=== PATIENT | female | born 1985 | race Caucasian/White ===

== ENCOUNTER → 2024-08-04 | Outpatient (CLI) | payer BC, SELFPAY | END | disposition home or self-care (01) | PROVIDERS: Referring Provider Nurse Practitioner Family; Visit Provider Nurse Practitioner Family | DX: N39.0 Urinary tract infection, site not specified (principal) | CPT/HCPCS: 87086 ==

== ENCOUNTER → 2024-08-08 | Outpatient (CLI) | payer BC, MEDICAID, SELFPAY ==
--- NOTE | 2024-08-08 16:00 | XR_ITS ---
Examination: Retroperitoneal ultrasound, complete Technique: Multiple high resolution grayscale images of the retroperitoneum obtained, including kidneys and bladder. Exam date and time:August 08, 2024 1647 hours INDICATIONS: Bilateral flank pain beginning 3 months ago with burning urination 3 weeks FINDINGS: Right kidney by 5.0 x 5.0 cm in the cortex 3.3 cm Left kidney 10.5 x 5.2 x 5.1 cm renal cortex 2.1 cm Mild renal parenchymal scar formation, no hydronephrosis or renal calculi No bladder mass or bladder calculi Bladder prevoid volume 460 cc postvoid volume 0 cc, bladder wall does not appear thickened IMPRESSION: Mild bilateral renal parenchymal scar formation
[2024-08-08 17:55] LABS: Basophils # (Auto) 0.1 Thou/mm3 (0.0-0.2); Basophils % (Auto) 1 % (0-2.5); Eosinophils # (Auto) 0.1 Thou/mm3 (0.0-0.5); Eosinophils % (Auto) 2 % (0-10); Hematocrit 40.3 % (36.0-46.0); Immature Granulocytes % (Auto) 0 % (0-0); Immature Granulocytes Auto 0.02 Thou/mm3 (0.00-0.00); Lymphocytes % (Auto) 41 % (10-50); Mean Corpuscular HGB Conc 34.7 g/dl (31.0-37.0); Mean Corpuscular Hemoglobin 31.5 pg (25.0-35.0); Mean Corpuscular Volume 91 fL (80-100); Monocytes # (Auto) 0.7 Thou/mm3 (0.0-0.8); Monocytes % (Auto) 9 % (0-12); Neutrophils # (Auto) 3.4 Thou/mm3 (1.8-7.7); Neutrophils % (Auto) 46 % (37-80); Nucleated Red Blood Cell % 0 /100 WBC (0); Platelet Count 219 Thou/mm3 (140-440); RDW Standard Deviation 39.9 fL (36.4-46.3); Red Blood Count 4.45 Miln/mm3 (4.00-5.20); White Blood Count 7.3 Thou/mm3 (3.6-11.0)
[2024-08-08 18:26] LABS: Alanine Aminotransferase 19 U/L (10-49); Albumin, Serum 4.5 gm/dL (3.5-5.0); Albumin/Globulin Ratio 2.3 (1.2-2.2); Alkaline Phosphatase 64 U/L (46-116); Anion Gap 4 (7-16); Aspartate Amino Transferase 18 U/L (0-34); BUN/Creatinine Ratio 12 Ratio (12-20); Bilirubin,Total 0.6 mg/dL (0.3-1.2); Blood Urea Nitrogen 11 mg/dL (9-23); Calcium 9.5 mg/dL (8.3-10.6); Calcium (Corrected) 9.5 mg/dL (8.5-10.1); Carbon Dioxide 28.3 mMol/L (20.0-31.0); Chloride 106 mMol/L (98-107); Creatinine (Component) 0.9 mg/dL (0.6-1.3); Glucose 83 mg/dL (74-106); Osmolality,Calculated 274 (275-295); Potassium 4.2 mMol/L (3.4-5.1); Sodium 138 mMol/L (136-145); Total Protein 6.5 gm/dL (5.7-8.2); eGFR > 60 See Note
== END | disposition home or self-care (01) ==
LOC: CDIM 16:58 → COPL 17:05
PROVIDERS: PCP Nurse Practitioner Family; Referring Provider Nurse Practitioner Family; Visit Provider Radiology Diagnostic Radiology
DX: N28.89 Other specified disorders of kidney and ureter (principal); N10 Acute pyelonephritis
CPT/HCPCS: 36415; 76770; 80053; 85025

== ENCOUNTER → 2024-09-15 | Outpatient (CLI) | payer BC, MEDICAID, SELFPAY ==
--- NOTE | 2024-09-15 14:30 | XR_ITS ---
Examination: CT abdomen and pelvis without contrast. Coronal 3-D reconstructions. Sagittal 2-D reconstructions. Date and time of exam:September 15, 2024 1448 hours COMPARISON: July 30, 2015 INDICATIONS: Hematuria several weeks, diagnosis interstitial cystitis CTDI: vol (mGy): 7.04 DLP: (mGycm): 376 Technique: Axial images of the abdomen have been obtained, 3 mm slice thickness Intravenous contrast material has not been administered. Low dose protocols were performed. One or more of the following dose reduction techniques were used; automated exposure control, adjustment of the mA and/or KV according to patient size, use of iterative reconstruction technique. Findings: No focal liver or splenic lesions Absent gallbladder No pancreatic or adrenal mass No renal or ureteral calculi, no hydronephrosis Aorta normal size No pericecal inflammatory change Moderate stool in the rectosigmoid region No cystitis pattern Appearing uterine remnant IMPRESSION: No renal or ureteral calculi, no hydronephrosis Apparent uterine remnant but clinical correlation advised, recommend pelvic sonography follow-up
== END | disposition home or self-care (01) ==
PROVIDERS: PCP Registered Nurse; Referring Provider Nurse Practitioner Family; Visit Provider Nurse Practitioner Family
DX: N30.11 Interstitial cystitis (chronic) with hematuria (principal)
CPT/HCPCS: 74176

== ENCOUNTER → 2025-02-21 | Outpatient (CLI) | payer OTHER, SELFPAY ==
--- NOTE | 2025-02-21 11:30 | XR_ITS ---
Examination: MRI hip arthrogram, right. Fluoroscopy AP hip 3 views Date and time of exam:February 13, 2025 at 1054 hours INDICATIONS: Injury to the lower back several months ago followed by right hip pain A timeout was completed verifying correct patient, procedure, site, positioning. The patient was placed in a supine position for the arthrogram Technique: Skin over the anterior hip is prepped. Local anesthesia obtained with 1% lidocaine, 1 cc divided doses. 22-gauge Chiba needle was passed into the hip joint anteriorly, utilizing fluoroscopic guidance. 1 cc of Isoview 300 injected confirming position of the needle tip within the hip joint. 12 cc bacteriostatic 0.9% with 0.1cc gadolinium introduced into the hip for subsequent MRI arthrogram. The patient was in satisfactory and stable condition at completion of the procedure. Estimated blood loss 0 cc. Findings: Contrast material is present within the hip joint indicating successful hip arthrogram. Impression: Successful hip arthrogram for MRI study to follow. Fluoroscopy 0.1 minute 3 spot fluoroscopic films.
--- NOTE | 2025-02-21 12:00 | XR_ITS ---
Examination: MRI right hip with intra-articular contrast Right hip arthrography, Date and time of exam: February 21, 2025 1257 hours INDICATIONS: Injury to the hip May 28, 2023 with persistent hip pain joint clicking decreased range of motion Technique: Multiple axial sagittal and coronal images of the right hip have been obtained with the Siemens high-resolution 1.5 Danay MRI scanner. Images obtained include T2-weighted fat-suppressed sagittal sections, TR 3500, TE 46, T2 weighted coronal fat suppressed images, TR 3050, TE 84, T2-weighted transverse fat suppressed images, TR 3260, TE 63, proton density transverse images, TR 4720 TE 46, and T1 weighted coronal images, TR 560, TE 13. Introduction 8 cc dilute gadolinium, please see the arthrogram report Findings: Adequate marrow signal right hip No hip fracture, bone contusion marrow edema or avascular necrosis Anterior right hip labral tears, axial image 9 Bones of the hemipelvis intact Left hip intact IMPRESSION: Anterior right hip labral tears
[2025-02-21] MEDS: [UNRECOGNIZED DRUG - OTHER] IV (12:20)
[2025-02-21] MEDS: SODIUM CHLORIDE IV (12:20)
== END | disposition home or self-care (01) ==
LOC: SDIM 11:04
PROVIDERS: PCP Registered Nurse; Referring Provider Orthopaedic Surgery; Visit Provider Orthopaedic Surgery
DX: S73.191A Other sprain of right hip, initial encounter (principal); S39.92XA Unspecified injury of lower back, initial encounter; X58.XXXA Exposure to other specified factors, initial encounter
CPT/HCPCS: 27095; 73525; 73722; A9579; Q9967